=== PATIENT | female | born 1950 | race Caucasian/White ===

== ENCOUNTER → 2024-11-22 06:19 | Outpatient (REF) | payer MEDICARE, OTHER, SELFPAY | LOC: RAD 06:19 | PROVIDERS: ATTENDING PHYSICIAN Internal Medicine; FAMILY PHYSICIAN Internal Medicine; OTHER PHYSICIAN Internal Medicine Endocrinology, Diabetes & Metabolism | DX: I10 Essential (primary) hypertension (principal); R79.89 Other specified abnormal findings of blood chemistry | CPT/HCPCS: 93975 ==

== ENCOUNTER 2025-09-10 06:34 | Day surgery (SDC) | payer MEDICARE, OTHER, SELFPAY | END 2025-09-10 12:48 | disposition home or self-care (01) | LOC: GI 06:34 | PROVIDERS: ATTENDING PHYSICIAN Internal Medicine | DX: Z12.11 Encounter for screening for malignant neoplasm of colon (principal); K57.30 Diverticulosis of large intestine without perforation or abscess without bleeding; K64.8 Other hemorrhoids; D12.3 Benign neoplasm of transverse colon; K63.5 Polyp of colon; K62.1 Rectal polyp; Z86.0100 Personal history of colon polyps, unspecified; Z83.719 Family history of colon polyps, unspecified | CPT/HCPCS: 45385; 45380; 88305 ==